=== PATIENT | male | born 1985 | race Caucasian/White ===

== ENCOUNTER 2017-12-28 11:41 | Emergency (ER) | payer SELFPAY ==
[~2017-12-28] VITALS: Ht 180.3 cm; Wt 102.5 kg
[~2017-12-28 11:41] MED LIST: DIAZ5TAB PO; HYDR-971 PO
[2017-12-28] MEDS ORDERED: ONDANSETRON ODT 4 MG TAB.RAPDIS PO ONE (12:30)
--- NOTE | 2017-12-28 12:42 | RAD ---
CT head without contrast History: Headache and dizziness. Technique: [address] imaging skull base to vertex. Findings: 15 mm unilocular cystic lesion of the right medial temporal lobe and hippocampus. No solid mass or significant mass effect. No intracranial hemorrhage, mass, hydrocephalus or infarction. No acute ischemic change is evident. Prior surgical fixation of the right orbital floor with mesh. Mastoids unremarkable. Impression: 1. No acute intracranial CT abnormality. 2. 15 mm intra-axial cystic lesion of the medial right temporal lobe at the hippocampus without significant mass effect or edema. This is not definitively evaluated on this noncontrast exam. 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 If no prior studies are available to document stability of this finding, assessment with outpatient MR imaging may be of benefit to confirm a simple cyst and to exclude the less likely possibility of a complex cystic mass.
[2017-12-28 13:03] VITALS: BP 134/86
[2017-12-28] MEDS ORDERED: ONDA4TAB10 SL (13:10)
--- NOTE | 2017-12-28 13:11 | PHYS DOC ---
Past History Past Medical History: Anxiety, Depression, Seizure Past Surgical History: No Surgical History Alcohol Use: Occasionally Drug Use: Marijuana Adult General Chief Complaint Chief Complaint: DIZZY/LIGHT HEADED HPI HPI 32-year-old male patient with history of anxiety complaining of nausea and 2 episodes of vomiting for the last 4 days associated with intermittent episodes of dizziness. Patient denies focal neuro deficit, chest pain, shortness of breath, head injury, upper or infection. Patient complaining of subjective fever. Patient states he had extensive dental cavity and concern for possible abscess of his teeth that caused dizziness and vomiting. Review of Systems Review of Systems Constitutional: Denies fever or chills [] Eyes: Denies change in visual acuity, redness, or eye pain [] HENT: Denies nasal congestion or sore throat [] Respiratory: Denies cough or shortness of breath [] Cardiovascular: No additional information not addressed in HPI [] GI: Denies abdominal pain, bloody stools or diarrhea, reports nausea and vomiting [] : Denies dysuria or hematuria [] Musculoskeletal: Denies back pain or joint pain [] Integument: Denies rash or skin lesions [] Neurologic: Denies headache, focal weakness or sensory changes , reports dizziness[] Endocrine: Denies polyuria or polydipsia [] All other systems were reviewed and found to be within normal limits, except as documented in this note. Current Medications Current Medications Current Medications Medications (Trade) Dose Ordered Sig/Tabatha Start Time Stop Time Status Last Admin Dose Admin Ondansetron HCl (Zofran Odt) 4 mg 1X ONCE 12/28/17 12:30 12/28/17 12:31 DC 12/28/17 12:38 4 MG Allergies Allergies Allergies Coded Allergies Type Severity Reaction Last Updated Verified No Known Drug Allergies 10/03/16 No Physical Exam Physical Exam Constitutional: Well nourished, no acute distress, non-toxic appearance, anxious. [] HENT: Normocephalic, atraumatic, bilateral external ears normal, oropharynx moist, no oral exudates, nose normal, extensive dental cavity without abscess [] Eyes: PERRLA, EOMI, conjunctiva normal, no discharge. [] Neck: Normal range of motion, no tenderness, supple, no stridor. [] Cardiovascular:Heart rate regular rhythm, no murmur [] Lungs & Thorax: Bilateral breath sounds clear to auscultation [] Abdomen: Bowel sounds normal, soft, no tenderness, no masses, no pulsatile masses. [] Skin: Warm, dry, no erythema, no rash. [] Back: No tenderness, no CVA tenderness. [] Extremities: No tenderness, no cyanosis, no clubbing, ROM intact, no edema. [] Neurologic: Alert and oriented X 3, normal motor function, normal sensory function, no focal deficits noted. [] Psychologic: Anxious, judgement normal, mood normal. [] Current Patient Data Vital Signs Vital Signs Date Time Temp Pulse Resp B/P (MAP) Pulse Ox O2 Delivery O2 Flow Rate FiO2 12/28/17 12:34 70 16 142/104 (117 98 Room Air 12/28/17 12:00 97.6 EKG EKG [] Radiology/Procedures Radiology/Procedures [] [address] [address] IMAGING REPORT Signed PATIENT: DUANE CISNEROS ACCOUNT: [id number] : 1985 LOCATION: ER AGE: 32 SEX: M EXAM STATUS: PRE ER ORD. PHYSICIAN: PETEY ROWAN MD REASON: dizziness PROCEDURE: CT HEAD WO CONTRAST CT head without contrast History: Headache and dizziness. Technique: [address] imaging skull base to vertex. Findings: 15 mm unilocular cystic lesion of the right medial temporal lobe and hippocampus. No solid mass or significant mass effect. No intracranial hemorrhage, mass, hydrocephalus or infarction. No acute ischemic change is evident. Prior surgical fixation of the right orbital floor with mesh. Mastoids unremarkable. Impression: 1. No acute intracranial CT abnormality. 2. 15 mm intra-axial cystic lesion of the medial right temporal lobe at the hippocampus without significant mass effect or edema. This is not definitively evaluated on this noncontrast exam. 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 If no prior studies are available to document stability of this finding, assessment with outpatient MR imaging may be of benefit to confirm a simple cyst and to exclude the less likely possibility of a complex cystic mass. DICTATED AND SIGNED BY: TYLER FITZGERALD MD DATE: 12/28/17 8290 CC: PETEY ROWAN MD; PCP,ALONDRA ~ Course & Med Decision Making Course & Med Decision Making Pertinent Imaging studies reviewed. (See chart for details) []Patient treated with Zofran and felt better and tolerated oral intake without any problem. Patient had unremarkable physical exam and CT head. Plan discharge patient home to diagnose of viral gastritis. Dragon Disclaimer Dragon Disclaimer This electronic medical record was generated, in whole or in part, using a voice recognition dictation system. Departure Departure: Impression: Primary Impression: Nausea and vomiting Additional Impressions: Dizziness Dental cavities Tobacco abuse Tobacco abuse counseling Disposition: HOME, SELF-CARE Condition: IMPROVED Referrals: PCPALONDRA (PCP) Patient Instructions: Dizziness, Nausea and Vomiting Additional Instructions: Drink plenty of liquids Follow-up with your primary care physician in 3-5 days Return to ER if not getting better Scripts Ondansetron (ZOFRAN ODT) 4 Mg Tab.rapdis 1 TAB SL Q8HRS, #15 TAB Prov: PETEY ROWAN MD 12/28/17 Problem Qualifiers PETEY ROWAN MD Dec 28, 2017 13:11
== END 2017-12-28 13:15 | disposition home or self-care (01) ==
LOC: ER 11:41
DX: R11.2 Nausea with vomiting, unspecified (principal); R42 Dizziness and giddiness; K02.9 Dental caries, unspecified; F41.9 Anxiety disorder, unspecified; F32.9 Major depressive disorder, single episode, unspecified; F12.10 Cannabis abuse, uncomplicated; Z72.0 Tobacco use; Z71.6 Tobacco abuse counseling
CPT/HCPCS: 70450; 99284; Q0162

== ENCOUNTER 2019-01-02 13:30 | Emergency (ER) | payer SELFPAY ==
[~2019-01-02] VITALS: Ht 180.3 cm; Wt 102.5 kg
[~2019-01-02 13:30] MED LIST changes: +HYDR-3165 PO; -HYDR-971 PO; +ONDA4TAB10 SL
[2019-01-02 13:51] VITALS: BP 134/91
[2019-01-02] MEDS ORDERED: CYCL-331 PO (14:14)
[2019-01-02] MEDS ORDERED: NAPR-683 PO (14:14)
[2019-01-02] MEDS ORDERED: CYCLOBENZAPRINE 10 MG TABLET. PO ONE (14:15)
--- NOTE | 2019-01-02 14:15 | PHYS DOC ---
Past History Past Medical History: Anxiety, Depression, Seizure Past Surgical History: No Surgical History Alcohol Use: Occasionally Drug Use: Marijuana Adult General Chief Complaint Chief Complaint: LOWER EXT PAIN HPI HPI Patient is a 33 year old male who presents with complaint of left knee pain. Patient states that his symptoms have been present over the past 2 weeks. States that he is having pain and tightness along the medial aspect of the left knee. He states that the pain extends up towards the mid thigh. States that the pain worsens with walking and when he tries to extend at the left knee. Denies any recent injury or fall. States that he has had history of recurrent back pain but denies any previous history of left knee problems. Has not noticed any swelling or redness to the affected extremity. Has taken naproxen w ith minimal relief in symptoms. Has also tried heat therapy with temporary relief. Review of Systems Review of Systems Constitutional: Denies fever or chills [] Eyes: Denies change in visual acuity, redness, or eye pain [] HENT: Denies nasal congestion or sore throat [] Respiratory: Denies cough or shortness of breath [] Cardiovascular: Denies chest pain or edema[] GI: Denies abdominal pain, nausea, vomiting, bloody stools or diarrhea [] : Denies dysuria or hematuria [] Musculoskeletal: Left knee pain[] Integument: Denies rash or skin lesions [] Neurologic: Denies headache, focal weakness or sensory changes [] All other systems were reviewed and found to be within normal limits, except as documented in this note. Allergies Allergies Allergies Coded Allergies Type Severity Reaction Last Updated Verified No Known Drug Allergies 10/03/16 No Physical Exam Physical Exam Constitutional: Well developed, well nourished, no acute distress, non-toxic appearance. [] HENT: Normocephalic, atraumatic, bilateral external ears normal, oropharynx moist, no oral exudates, nose normal. [] Eyes: PERRLA, EOMI, conjunctiva normal, no discharge. [] Neck: Normal range of motion, no tenderness, supple, no stridor. [] Cardiovascular:Heart rate regular rhythm, no murmur [] Lungs & Thorax: Bilateral breath sounds clear to auscultation [] Abdomen: Bowel sounds normal, soft, no tenderness, no masses, no pulsatile masses. [] Skin: Warm, dry, no erythema, no rash. [] Back: No tenderness, no CVA tenderness. [] Extremities: No obvious deformity to left knee, full range of motion present, crepitus along quadriceps and patellar tendon with extension, no abnormal patellar movement, negative anterior drawer test, tenderness palpation along the media and anterior l left quadriceps muscle. [] Neurologic: Alert and oriented X 3, normal motor function, normal sensory function, no focal deficits noted. [] Current Patient Data Vital Signs Vital Signs Date Time Temp Pulse Resp B/P (MAP) Pulse Ox O2 Delivery O2 Flow Rate FiO2 01/02/19 13:51 98.1 64 18 98 Room Air 01/02/19 13:40 134/91 (105) Lab Results Not performed EKG EKG Not performed[] Radiology/Procedures Radiology/Procedures Not performed[] Course & Med Decision Making Course & Med Decision Making Pertinent Labs and Imaging studies reviewed. (See chart for details) The patient appears to have symptoms consistent with tendinitis and quadriceps muscle strain causing left knee pain symptoms. Advised to continue heat therapy. Given Flexeril in the emergency department. Advised to continue on Flexeril and Naprosyn for outpatient therapy with recommended follow-up in one week with primary doctor symptoms are not improving. Advised return to the emergency department for any worsening symptoms. Patient was understanding and in agreement with treatment plan.[] Dragon Disclaimer Dragon Disclaimer This electronic medical record was generated, in whole or in part, using a voice recognition dictation system. Departure Departure: Impression: Primary Impression: Tendinitis of left knee Additional Impression: Quadriceps muscle strain Disposition: 01 HOME, SELF-CARE Condition: STABLE Referrals: PCP,NO (PCP) Patient Instructions: Muscle Strain, Patellar Tendinitis, Jumper's Knee with [facility] Additional Instructions: Follow-up with your primary doctor in 1 week if symptoms are not improving. Return to the emergency department for any worsening symptoms. Scripts Cyclobenzaprine Hcl (CYCLOBENZAPRINE HCL) 10 Mg Tablet 1 TAB PO TID PRN for MUSCLE SPASMS, #30 TAB Prov: AINSLEY MCDOWELL MD 01/02/19 Naproxen (NAPROSYN) 500 Mg Tablet 1 TAB PO BID, #20 TAB 0 Refills Prov: AINSLEY MCDOWELL MD 01/02/19 Problem Qualifiers Additional Impression: Quadriceps muscle strain Encounter type: initial encounter Laterality: left Qualified Codes: S76.112A - Strain of left quadriceps muscle, fascia and tendon, initial encounter AINSLEY MCDOWELL MD Jan 02, 2019 14:15
== END 2019-01-02 14:26 | disposition home or self-care (01) ==
LOC: ER 13:30
DX: S76.112A Strain of left quadriceps muscle, fascia and tendon, initial encounter (principal); M76.892 Other specified enthesopathies of left lower limb, excluding foot; F41.9 Anxiety disorder, unspecified; F32.9 Major depressive disorder, single episode, unspecified; X58.XXXA Exposure to other specified factors, initial encounter; Y93.01 Activity, walking, marching and hiking; Y92.89 Other specified places as the place of occurrence of the external cause; Y99.8 Other external cause status
CPT/HCPCS: 99283

== ENCOUNTER 2020-11-17 16:14 | Emergency (ER) | payer SELFPAY ==
[~2020-11-17] VITALS: Ht 180.3 cm; Wt 100.0 kg
[~2020-11-17 16:14] MED LIST changes: +CYCL-331 PO; +NAPR-683 PO
[2020-11-17 16:24] VITALS: BP 132/86
[2020-11-17] MEDS ORDERED: [UNRECOGNIZED DRUG - OTHER] IJ ONE (16:45)
[2020-11-17] MEDS ORDERED: BUPIVACAINE MPF 0.25% 10 ML VIAL. ONE (16:57)
[2020-11-17] MEDS: BUPIVACAINE MPF 0.5% 30 ML VIAL. IJ ONE (17:00)
--- NOTE | 2020-11-17 17:27 | PHYS DOC ---
Past History Past Medical History: Anxiety, Depression, Seizure Past Surgical History: No Surgical History Alcohol Use: Occasionally Drug Use: Marijuana Adult General Chief Complaint Chief Complaint: DENTAL PROBLEM HPI HPI Patient is a 35-year-old male complains of dental pain on the right lower side molar with cavities that he has had for years. Patient states that he does not have dental insurance, and he states he cannot afford to see a dentist. Patient denies any loss of sensation to his face, denies loss of taste or loss of smell, denies throat pain, denies difficulty breathing, denies neck pain, denies nausea vomiting or diarrhea. Denies headache. patient has no other physical complaints or physical concerns. Patient denies any allergies to medications, denies taking any prescription medications at home. Review of Systems Review of Systems 14 body systems of review of systems have been reviewed. See HPI for pertinent positives and negative responses, otherwise all other systems are negative, nonpertinent or noncontributory. Current Medications Current Medications Current Medications Medications (Trade) Dose Ordered Sig/Tabatha Start Time Stop Time Status Last Admin Dose Admin Bupivacaine HCl (Sensorcaine Mpf 0.5%) 10 ml 1X ONCE 11/17/20 17:00 11/17/20 17:01 DC 11/17/20 17:00 10 ML Bupivacaine HCl (Sensorcaine-Mpf 0.25%) 10 ml STK-MED ONCE 11/17/20 16:57 11/17/20 16:57 DC Bupivacaine HCl/ Epinephrine Bitart (Sensorcain Epi 0.5%-1:[id number]) 30 ml 1X ONCE 11/17/20 16:45 11/17/20 16:46 DC Allergies Allergies Allergies Coded Allergies Type Severity Reaction Last Updated Verified No Known Drug Allergies 10/03/16 No Physical Exam Physical Exam Constitutional: Well developed, well nourished, mild distress, non-toxic appearance. Patient holding right side of jaw. HENT: Normocephalic, atraumatic, bilateral external ears normal, oropharynx moist, no oral exudates, nose normal. Oropharynx pink, moist, no uvular edema, no tonsillar swelling, no deep tissue infectious process of the oropharynx appreciated, marked dental caries with multiple broken teeth and various stages of decay, swollen gums, no purulent drainage noted from gums. No lymphadenopathy of the head or neck. Eyes: PERRLA, EOMI, conjunctiva normal, no discharge. Neck: Normal range of motion, no tenderness, supple, no stridor. No nuchal rigidity, no meningismus signs. Cardiovascular:Heart rate regular rhythm, no murmur Lungs & Thorax: Bilateral breath sounds clear to auscultation Abdomen: Bowel sounds normal, soft, no tenderness, no masses, no pulsatile masses. Skin: Warm, dry, no erythema, no rash. Back: No tenderness, no CVA tenderness. Extremities: No tenderness, no cyanosis, no clubbing, ROM intact, no edema. Neurologic: Alert and oriented X 3, normal motor function, normal sensory function, no focal deficits noted. Psychologic: Affect normal, judgement normal, mood normal. Current Patient Data Vital Signs Vital Signs Date Time Temp Pulse Resp B/P (MAP) Pulse Ox O2 Delivery O2 Flow Rate FiO2 11/17/20 16:24 97.6 67 16 132/86 (101) 99 Room Air EKG EKG [] Radiology/Procedures Radiology/Procedures [] Heart Score C/O Chest Pain: No Risk Factors: Risk Factors: DM, Current or recent (<one month) smoker, HTN, HLP, family his tory of CAD, obesity. Risk Scores: Risk Factors: DM, Current or recent (<one month) smoker, HTN, HLP, family history of CAD, obesity. Course & Med Decision Making Course & Med Decision Making Pertinent Labs and Imaging studies reviewed. (See chart for details) 35-year-old male, vital signs reviewed, presents emergency department concern of dental pain for over a year. Physical examination noted marked dental caries, ED plan inferior alveolar dental block, start on Augmentin and discharged home with plan for patient to see dentist. Procedure note: Inferior alveolar dental block performed on right side using 3 cc half percent Marcaine without epinephrine. Patient tolerated procedure well, patient reports total pain relief from 10/10 pain to 0/10 pain. There were no complications during procedure. Patient gave verbal understanding of discharge home instructions, antibiotic use, discussed with patient following up with dental college or so far [facility] as they help with patients that have no dental insurance, patient gave verbal understanding of follow-up with dentist soon, return to emergency department precautions or concerns and was discharged home without incident Dragon Disclaimer Dragon Disclaimer This electronic medical record was generated, in whole or in part, using a voice recognition dictation system. Departure Departure: Impression: Primary Impression: Dental caries Additional Impression: Dentalgia Disposition: 01 DC HOME SELF CARE/HOMELESS Condition: IMPROVED Referrals: PCP,NO (PCP) Patient Instructions: Dental Caries, Dental Pain Additional Instructions: Please take antibiotic as prescribed, use dental wash as prescribed, follow-up with the dental college or [facility] dentist soon, please return to the emergency department for worsening symptoms or other concerns. EMERGENCY DEPARTMENT GENERAL DISCHARGE INSTRUCTIONS Thank you for coming to [facility] (ED) today and trusting us with you care. We trust that you had a positivie experience in our Emergency Department. If you wish to speak to the department management, you may call the director at [phone]. YOUR FOLLOW UP INSTRUCTIONS ARE FOLLOWS: 1. Do you have a private Doctor? If you do not have a private doctor, please ask for a resource list of physicians or clinics that may be able to assist you with follow up care. 2. The Emergency Physician has interpreted your x-rays. The X-Ray specialist will also review them. If there is a change in the findings, you will be notified in 48 hours when at all possible. 3. A lab test or culture has been done, your results will be reviewed and you will be notified if you need a change in treatment. ADDITIONAL INSTRUCTIONS AND INFORMATION: 1. Your care today has been supervised by a physician who is specially trained in emergency care. Many problems require more than one evaluation for a complete diagnosis and treatment. We recommend that you schedule your follow up appointment as recommended to ensure complete treatment of you illness or injury. If you are unable to obtain follow up care and continue to have a problem, or if your condition worsens, we recommend that you return to the ED. 2. We are not able to safely determine your condition over the phone nor are we able to give sound medical advice over the phone. For these safety reasons, if you call for medical advice we will ask you to come to the ED for further evaluation. 3. If you have any questions regarding these discharge instructions please call the ED at [phone]. SAFETY INFORMATION: In the interest of safety, wellness, and injury prevention; we encourage you to wear your sealbelt, if you smoke; quite smoking, and we encourage family to use a protective helmet for bicycling and other sporting events that present an increased risk for head injury. IF YOUR SYMPTOMS WORSEN OR NEW SYMPTOMS DEVELOP, OR YOU HAVE CONCERNS ABOUT YOUR CONDITION; OR IF YOUR CONDITION WORSENS WHILE YOU ARE WAITING FOR YOUR FOLLOW UP APPOINTMENT; EITHER CONTACT YOUR PRIMARY CARE DOCTOR, THE PHYSICIAN WHOSE NAME AND NUMBER YOU WERE Ritika IRWIN, OR RETURN TO THE ED IMMEDIATELY. Scripts Ibuprofen (IBUPROFEN) 600 Mg Tablet 600 MG PO TID PRN PRN for PAIN, #20 TAB 0 Refills Prov: BETZY CARLOS APRN 11/17/20 Chlorhexidine Gluconate (PERIDEX) 15 Ml Mouthwash 30 ML PO TID for DENTAL INFECTION for 8 Days, #473 ML 0 Refills SWISH AND SPIT 30ML THREE TIMES A DAY Prov: BETZY CARLOS APRN 11/17/20 Amoxicillin/Potassium Clav (AUGMENTIN 875-125 TABLET) 1 Each Tablet 1 TAB PO BID for DENTAL INFECTION for 10 Days, #20 TAB 0 Refills Prov: BETZY CARLOS APRN 11/17/20 Problem Qualifiers BETZY CARLOS APRN Nov 17, 2020 17:27
[2020-11-17] MEDS: HYDROcodone/APAP 5/325MG 1 TAB TABLET PO ONE (18:15)
[2020-11-17] MEDS ORDERED: AMOX1TAB61 PO (18:19)
[2020-11-17] MEDS ORDERED: IBUP600T16 PO (18:19)
[2020-11-17] MEDS ORDERED: CHLO15MO2 PO (18:19)
== END 2020-11-17 18:09 | disposition home or self-care (01) ==
LOC: ER 16:14
DX: S02.5XXA Fracture of tooth (traumatic), initial encounter for closed fracture (principal); K02.9 Dental caries, unspecified; X58.XXXA Exposure to other specified factors, initial encounter; Y93.89 Activity, other specified; Y92.89 Other specified places as the place of occurrence of the external cause; Y99.8 Other external cause status
CPT/HCPCS: 64400; 99284; J3490

== ENCOUNTER 2021-02-03 21:56 | Emergency (ER) | payer SELFPAY ==
[~2021-02-03] VITALS: Ht 180.3 cm; Wt 106.8 kg
[~2021-02-03 21:56] MED LIST changes: +AMOX1TAB61 PO; +CHLO15MO2 PO; +IBUP600T16 PO
[2021-02-03] MEDS ORDERED: KETOROLAC 60 MG/2 ML VIAL. IM ONE (22:30)
[2021-02-03] MEDS ORDERED: cefTRIAXone IM 1 GM VIAL IM ONE (22:30)
--- NOTE | 2021-02-03 22:30 | PHYS DOC ---
Past History Past Medical History: Anxiety, Depression, Seizure, Other Additional Past Medical Histor: insomnia Past Surgical History: No Surgical History Alcohol Use: Occasionally Drug Use: Marijuana General Adult EDM: Chief Complaint: DENTAL PROBLEM HPI: HPI: "... I know I got bad teeth.. but tripping for all this edema today.. infection into my lower neck and face it... feels like..." Patient is a 35 year old male who presents with dental infection.. Patient has multiple areas of decay where teeth are rotted into the gums. Does have adenopathy at angle of mandible bilaterally. Does have facial edema and erythema. No trismus. Patient denies any extremity expression. Up-to-date w ith vaccinations. Up-to-date with tetanus. No recent travel. No specific ill contacts. No history immunosuppression.. Review of Systems: Review of Systems: Constitutional: Denies fever or chills Eyes: Denies change in visual acuity HENT: Complains of dental pain, dental infections and facial cellulitis Respiratory: Denies cough or shortness of breath Cardiovascular: Denies chest pain or edema GI: Denies abdominal pain, nausea, vomiting, bloody stools or diarrhea : Denies dysuria Musculoskeletal: Denies back pain or joint pain Integument: Denies rash Neurologic: Denies headache, focal weakness or sensory changes Endocrine: Denies polyuria or polydipsia Lymphatic: Denies swollen glands Psychiatric: Denies depression or anxiety Family History: Family History: Noncontributory to presentation Current Medications: Current Meds: See nursing for home meds Allergies: Allergies: Allergies Coded Allergies Type Severity Reaction Last Updated Verified No Known Drug Allergies 10/03/16 No Physical Exam: PE: Constitutional: Moderate acute distress, non-toxic appearance. [] HENT: Normocephalic, atraumatic, bilateral external ears normal, oropharynx moist, no oral exudates, nose normal. Multiple areas of dental decay. Gingivitis. Adenopathy at angle of mandibles bilaterally. Some findings of facial cellulitis, edema, erythema Eyes: PERRLA, EOMI, conjunctiva normal, no discharge. [] Neck: Normal range of motion, no tenderness, supple, no stridor. [] Cardiovascular:Heart rate regular rhythm, no murmur [] Lungs & Thorax: Bilateral breath sounds equal apex with scattered wheezes on auscultation [] Abdomen: Bowel sounds normal, soft, no tenderness, no masses, no pulsatile masses. [] Skin: Warm, dry, no erythema, no rash. [] Tattoos Back: No tenderness, no CVA tenderness. [] Extremities: No tenderness, no cyanosis, no clubbing, ROM intact, no edema. [] Neurologic: Alert and oriented X 3, normal motor function, normal sensory function, no focal deficits noted. [] Psychologic: Affect anxious, judgement normal, mood normal. [] Current Patient Data: Vital Signs: Vital Signs Date Time Temp Pulse Resp B/P (MAP) Pulse Ox O2 Delivery O2 Flow Rate FiO2 02/03/21 22:03 97.7 93 16 150/105 (120) 97 Room Air EKG: EKG: [] Radiology/Procedures: Radiology/Procedures: [] Heart Score: C/O Chest Pain: N/A Risk Factors: Risk Factors: DM, Current or recent (<one month) smoker, HTN, HLP, family history of CAD, obesity. Risk Scores: Score 0 - 3: 2.5% MACE over next 6 weeks - Discharge Home Score 4 - 6: 20.3% MACE over next 6 weeks - Admit for Clinical Observation Score 7 - 10: 72.7% MACE over next 6 weeks - Early Invasive Strategies Course & Med Decision Making: Course & Med Decision Making Pertinent Labs and Imaging studies reviewed. (See chart for details) Advised patient nothing new we do in the emergency room tonight will fix his underlying problem must follow-up with a dentist surgeon. Appears to need multiple extractions. Patient take Keflex 750 mg 3 times a day. Tylenol and ibuprofen for pain. Impression: 1. Dental pain 2. Dental infections 3. Facial cellulitis (appears to be from multiple areas of dental decay and infection) [] Dragon Disclaimer: Dragon Disclaimer: This electronic medical record was generated, in whole or in part, using a voice recognition dictation system. Departure Departure: Referrals: PCP,NO (PCP) Scripts Cephalexin (KEFLEX) 750 Mg Capsule 750 MG PO TID for dental infection for 10 Days, #30 CAP Prov: XIOMY FAJARDO MD 02/03/21 Alberto Disclaimer This chart was dictated in whole or in part using Voice Recognition software in a busy, high-work load, and often noisy Emergency Department environment. It may contain unintended and wholly unrecognized errors or omissions. XIOMY FAJARDO MD February 03, 2021 22:30
[2021-02-03] MEDS ORDERED: CEPH750C9 PO (22:34)
[2021-02-03 23:05] VITALS: BP 140/90
== END 2021-02-03 23:13 | disposition home or self-care (01) ==
LOC: ER 21:56
DX: K04.7 Periapical abscess without sinus (principal); L03.211 Cellulitis of face; F12.10 Cannabis abuse, uncomplicated; F41.9 Anxiety disorder, unspecified; F32.9 Major depressive disorder, single episode, unspecified
CPT/HCPCS: 96372; 99284; J0696; J1885

== ENCOUNTER 2021-10-23 19:26 | Emergency (ER) | payer SELFPAY ==
[~2021-10-23] VITALS: Ht 180.3 cm; Wt 105.1 kg
[~2021-10-23 19:26] MED LIST changes: +CEPH750C9 PO; -CYCL-331 PO; +CYCL10TA19 PO
[2021-10-23 19:35] VITALS: BP 149/85
--- NOTE | 2021-10-23 20:10 | PHYS DOC ---
Past History Past Medical History: Anxiety, Depression, Seizure, Other Additional Past Medical Histor: insomnia (HAYLEY MARR APRN) Past Surgical History: No Surgical History (HAYLEY MARR APRN) Alcohol Use: Occasionally Drug Use: Marijuana (HAYLEY MARR APRN) General Adult EDM: Chief Complaint: DENTAL PROBLEM HPI: HPI: Patient is a 36-year-old male who presents to the emergency department today concerning a dental abscess that popped today. Patient reports that he saw his dentist today and was placed on an antibiotic for dental abscess. Patient reports that he has had the dental abscess with dental pain for 1 week. He reports that he was sitting at home when he fell to the dental abscess pop and had drainage from the site. Patient denies any difficulty breathing, nausea, vomiting, difficulty maintaining secretions, fevers. Patient reports that he was concerned about the abscess popping because he was told that he should not swallow any of his spit because it may have the infection in it and he may get a blood infection. (HAYLEY MARR APRN) Review of Systems: Review of Systems: Constitutional: See HPI HENT: See HPI Respiratory: See HPI GI: See HPI (HAYLEY MARR APRN) Allergies: Allergies: Allergies Coded Allergies Type Severity Reaction Last Updated Verified No Known Drug Allergies 10/03/16 No (HAYLEY MARR APRN) Physical Exam: PE: Constitutional: Well developed, well nourished, no acute distress, non-toxic appearance. [] HENT: Normocephalic, atraumatic, bilateral external ears normal, oropharynx moist, popped abscess to right lower gums proximal to 2nd molar, uvula midline, no trismus, no phonation changes, patient maintaining secretions, several areas of dental decay, caries and broken teeth no oral exudates, nose normal. [] Eyes: PERRL, EOMI, conjunctiva normal, no discharge. [] Neck: Normal range of motion, no tenderness, supple, no stridor. [] Cardiovascular: Normal peripheral perfusion Lungs & Thorax: Normal work of breathing, no tachypnea Abdomen: Soft and flat Skin: Warm, dry, no erythema, no rash. [] Back: Normal range of motion Extremities: No tenderness, no cyanosis, no clubbing, ROM intact, no edema. [] Neurologic: Alert and oriented X 3, normal motor function, normal sensory function, no focal deficits noted. [] Psychologic: Affect normal, judgement normal, mood normal. [] (HAYLEY MARR APRN) EKG: EKG: [] (HAYLEY MARR APRN) Radiology/Procedures: Radiology/Procedures: [] (HAYLEY MARR APRN) Heart Score: C/O Chest Pain: N/A Risk Factors: Risk Factors: DM, Current or recent (<one month) smoker, HTN, HLP, family history of CAD, obesity. Risk Scores: Score 0 - 3: 2.5% MACE over next 6 weeks - Discharge Home Score 4 - 6: 20.3% MACE over next 6 weeks - Admit for Clinical Observation Score 7 - 10: 72.7% MACE over next 6 weeks - Early Invasive Strategies (HAYLEY MARR APRN) Course & Med Decision Making: Course & Med Decision Making Pertinent Labs and Imaging studies reviewed. (See chart for details) [] Patient presents to the emergency department after his dental abscess popped today. Patient was placed on amoxicillin today by his dentist. Patient does not have any facial swelling and is not having any nausea, vomiting, fevers, inability to maintain secretions. His physical exam is reassuring. Patient's vital signs are stable. I advised patient to continue taking his amoxicillin, perform warm salt water rinses and follow-up with his dentist in 2 days for a recheck. I discussed with patient all findings as well as the need to follow-up with PCP for further evaluation and treatment or return to the ER if any new or worsening symptoms. Strict return precautions were also discussed at length. Patient voiced understanding and agreement with the plan. Patient is hemodynamically stable at the time of disposition. (HAYLEY MARR APRN) Dragon Disclaimer: Dragon Disclaimer: This electronic medical record was generated, in whole or in part, using a voice recognition dictation system. (HAYLEY MARR APRN) Departure Departure: Impression: Primary Impression: Dental abscess Disposition: HOME / SELF CARE / HOMELESS Condition: GOOD Referrals: PCP,NO (PCP) Patient Instructions: Dental Abscess Additional Instructions: You were seen in the emergency department today after your dental abscess popped. Please perform warm salt water rinses. Please continue to take your antibiotic as directed. Make sure you start and finish it completely. You can take Tylenol or ibuprofen for any pain at home. Follow-up with your dentist in 2 days for a recheck. Return to the emergency department if you develop high fevers refractory to treatment, intractable nausea or vomiting, facial swelling, shortness of breath, inability to maintain your secretions, voice changes, weakness, confusion, worsening of your pain. Attending Signature Attending Signature I have participated in the care of this patient and I have reviewed and agree with all pertinent clinical information above including history, exam, and recommendations. (XIOMY FAJARDO MD) Attending Signature Attending Signature I have participated in the care of this patient and I have reviewed and agree with all pertinent clinical information above including history, exam, and recommendations. (XIOMY FAJARDO MD) HAYLEY MARR APRN Oct 23, 2021 20:10 XIOMY FAJARDO MD Oct 24, 2021 20:15
== END 2021-10-23 20:18 | disposition home or self-care (01) ==
LOC: ER 19:26
DX: K04.7 Periapical abscess without sinus (principal); F12.10 Cannabis abuse, uncomplicated
CPT/HCPCS: 99282-25

== ENCOUNTER 2022-02-02 11:13 | Emergency (ER) | payer SELFPAY ==
[~2022-02-02] VITALS: Ht 180.3 cm; Wt 105.1 kg
[2022-02-02 11:38] VITALS: BP 143/96
--- NOTE | 2022-02-02 12:03 | PHYS DOC ---
Past History Past Medical History: Anxiety, Depression, Seizure, Other Additional Past Medical Histor: insomnia Past Surgical History: Other Additional Past Surgical Histo: RIGHT ORBIT, RIGHT KNEE Alcohol Use: Rarely Drug Use: Marijuana General Adult EDM: Chief Complaint: PAIN ON URINATION HPI: HPI: Patient is a 36-year-old male presents with dysuria. Patient states he noticed a small amount of discharge coming from his penis this morning. Patient states that symptoms started today. was seen last week ER and treated for UTI. Denies change in partners. Denies all medical history. Review of Systems: Review of Systems: ROS At least 10 ROS systems have been reviewed and are negative except as documented in the HPI. General: Negative except as outlined in HPI above. Skin: Negative except as outlined in HPI above. HEENT: Negative except as outlined in HPI above. Neck: Negative except as outlined in HPI above. Respiratory: Negative except as outlined in HPI above.. Cardiovascular: Negative except as outlined in HPI above. Abdomen: Negative except as outlined in HPI above. : Negative except as outlined in HPI above. Back/MSK: Negative except as outlined in HPI above. Neuro: Negative except as outlined in HPI above. Psych: Negative except as outlined in HPI above. Allergies: Allergies: Allergies Coded Allergies Type Severity Reaction Last Updated Verified No Known Drug Allergies 10/03/16 No Physical Exam: PE: Constitutional: Well developed, well nourished, no acute distress, non-toxic appearance. [] HENT: Normocephalic, atraumatic, bilateral external ears normal, oropharynx moist, no oral exudates, nose normal. [] Eyes: PERRLA, EOMI, conjunctiva normal, no discharge. [] Neck: Normal range of motion, no tenderness, supple, no stridor. [] Cardiovascular:Heart rate regular rhythm, no murmur [] Lungs & Thorax: Bilateral breath sounds clear to auscultation [] Abdomen: Bowel sounds normal, soft, no tenderness, no masses, no pulsatile masses. [] Skin: Warm, dry, no erythema, no rash. [] Back: No tenderness, no CVA tenderness. [] Extremities: No tenderness, no cyanosis, no clubbing, ROM intact, no edema. [] Neurologic: Alert and oriented X 3, normal motor function, normal sensory functi on, no focal deficits noted. [] Psychologic: Affect normal, judgement normal, mood normal. [] Current Patient Data: Vital Signs: Vital Signs Date Time Temp Pulse Resp B/P (MAP) Pulse Ox O2 Delivery O2 Flow Rate FiO2 02/02/22 11:38 98.8 85 16 143/96 (112) 98 EKG: EKG: [] Radiology/Procedures: Radiology/Procedures: [] Heart Score: C/O Chest Pain: No Risk Factors: Risk Factors: DM, Current or recent (<one month) smoker, HTN, HLP, family history of CAD, obesity. Risk Scores: Score 0 - 3: 2.5% MACE over next 6 weeks - Discharge Home Score 4 - 6: 20.3% MACE over next 6 weeks - Admit for Clinical Observation Score 7 - 10: 72.7% MACE over next 6 weeks - Early Invasive Strategies Course & Med Decision Making: Course & Med Decision Making Pertinent Labs and Imaging studies reviewed. (See chart for details) [] 36-year-old male presents with dysuria and penile discharge. Patient reports that symptoms started this morning. Work-up consisted of urinalysis, GC chlamydia urine. Urine is positive for nitrates, moderate blood, trace leuks. Discussed all results with patient. Started patient on antibiotics at home. Advised patient to take antibiotics in full and as directed. Increase fluids. Urine also tested for GC/chlamydia. Advised patient it would take 1 to 2 days to obtain results and he would be notified if he had positive UA. Alberto Disclaimer: Alberto Disclaimer: This electronic medical record was generated, in whole or in part, using a voice recognition dictation system. Departure Departure: Impression: Primary Impression: Urinary tract infection Qualified Codes: N30.01 - Acute cystitis with hematuria Disposition: HOME / SELF CARE / HOMELESS Condition: STABLE Referrals: PCP,NO (PCP) Patient Instructions: Urinary Tract Infection, [id number] Additional Instructions: You are seen in the emergency room for burning with urination. Your urine was positive for infection. I am sending you home with an antibiotic. Make sure you take as directed and in full. Please increase your fluids. Return emergency room for worsening symptoms or concerns. EMERGENCY DEPARTMENT GENERAL DISCHARGE INSTRUCTIONS Thank you for coming to [facility] (ED) today and trusting us with you care. We trust that you had a positivie experience in our Emergency Department. If you wish to speak to the department management, you may call the director at [phone]. YOUR FOLLOW UP INSTRUCTIONS ARE FOLLOWS: 1. Do you have a private Doctor? If you do not have a private doctor, please ask for a resource list of physicians or clinics that may be able to assist you with follow up care. 2. The Emergency Physician has interpreted your x-rays. The X-Ray specialist w ill also review them. If there is a change in the findings, you will be notified in 48 hours when at all possible. 3. A lab test or culture has been done, your results will be reviewed and you will be notified if you need a change in treatment. ADDITIONAL INSTRUCTIONS AND INFORMATION: 1. Your care today has been supervised by a physician who is specially trained in emergency care. Many problems require more than one evaluation for a complete diagnosis and treatment. We recommend that you schedule your follow up appointment as recommended to ensure complete treatment of you illness or injury. If you are unable to obtain follow up care and continue to have a problem, or if your condition worsens, we recommend that you return to the ED. 2. We are not able to safely determine your condition over the phone nor are we able to give sound medical advice over the phone. For these safety reasons, if you call for medical advice we will ask you to come to the ED for further evaluation. 3. If you have any questions regarding these discharge instructions please call the ED at [phone]. SAFETY INFORMATION: In the interest of safety, wellness, and injury prevention; we encourage you to wear your sealbelt, if you smoke; quite smoking, and we encourage family to use a protective helmet for bicycling and other sporting events that present an increased risk for head injury. IF YOUR SYMPTOMS WORSEN OR NEW SYMPTOMS DEVELOP, OR YOU HAVE CONCERNS ABOUT YOUR CONDITION; OR IF YOUR CONDITION WORSENS WHILE YOU ARE WAITING FOR YOUR FOLLOW UP APPOINTMENT; EITHER CONTACT YOUR PRIMARY CARE DOCTOR, THE PHYSICIAN WHOSE NAME AND NUMBER YOU WERE GIVEN, OR RETURN TO THE ED IMMEDIATELY. Scripts Sulfamethoxazole/Trimethoprim (BACTRIM DS TABLET) 1 Each Tablet 1 TAB PO BID for actue cystitis for 7 Days, #14 TAB 0 Refills Prov: DANIS JONES APRN 02/02/22 DANIS JONES APRN February 02, 2022 12:03
[2022-02-02 13:08] LABS: BACTERIA,URINE MOD /HPF (0-FEW); CLARITY,URINE CLEAR; COLOR,URINE ORANGE; GLUCOSE,URINE 100 mg/dL (NEG); NITRITE,URINE POS (NEG); SQUAMOUS EPITHELIAL CELL,UR OCC /LPF; WBC,URINE TNTC /HPF (0-4)
[2022-02-02] MEDS ORDERED: SULF1TAB24 PO (13:41)
== END 2022-02-02 13:50 | disposition home or self-care (01) ==
LOC: ER 11:13
DX: N30.01 Acute cystitis with hematuria (principal)
CPT/HCPCS: 36415; 81001; 87077; 87086; 87186; 87491; 87591; 99283